=== PATIENT | female | born 2000 | race Caucasian/White ===

== ENCOUNTER → 2024-12-21 | Outpatient (CLI) | payer BC, SELFPAY | END | disposition home or self-care (01) | PROVIDERS: PCP Pediatrics; Referring Provider Obstetrics & Gynecology; Visit Provider Obstetrics & Gynecology | DX: Z12.4 Encounter for screening for malignant neoplasm of cervix (principal) | CPT/HCPCS: 87624; 88175; G0145 ==

== ENCOUNTER → 2024-12-21 | Outpatient (CLI) | payer BC, SELFPAY | END | disposition home or self-care (01) | LOC: BWCLAB 10:32 | PROVIDERS: PCP Pediatrics; Referring Provider Obstetrics & Gynecology; Visit Provider Obstetrics & Gynecology | DX: E28.2 Polycystic ovarian syndrome (principal); E03.9 Hypothyroidism, unspecified | CPT/HCPCS: 36415; 82627; 82670; 83036; 83516; 84402; 84403; 82626 ==

== ENCOUNTER → 2024-12-25 | Outpatient (CLI) | payer MEDICAID, SELFPAY ==
--- NOTE | 2024-12-25 13:04 | US_ITS ---
PROCEDURE: TRANSVAGINAL NON- 12/25/2024 REASON FOR EXAM: PCOS TECHNIQUE: TRANSVAGINAL NON- COMPARISON: None FINDINGS: LMP: November 25, 2024. Measurements: Uterus: 7.7 cm x 4.8 cm x 3.2 cm with a volume of 60.85 mL Endometrial Thickness: 6.3 mm. It is hyperechoic. Right Ovary: 4.4 cm x 3.0 cm x 2.5 cm with a volume of 17.23 mL. Left Ovary: 4.3 cm x 2.7 cm x 3.6 cm 21.02 with a volume of mL. Uterus: Normal size, myometrial echotexture, and contour.. Nabothian cyst is seen in the cervix. Endometrium: Unremarkable. Right ovary: Normal size and echotexture. Left ovary: Normal size and echotexture. Other: No large pelvic mass identified. US/Transvaginal Non- IMPRESSION: NORMAL TRANSABDOMINAL PELVIC ULTRASOUND. Reading Location: [facility]
== END | disposition home or self-care (01) ==
PROVIDERS: PCP Internal Medicine; Referring Provider Obstetrics & Gynecology; Visit Provider Obstetrics & Gynecology
DX: E28.2 Polycystic ovarian syndrome (principal)
CPT/HCPCS: 76830

== ENCOUNTER → 2025-01-01 | Outpatient (CLI) | payer MEDICAID, SELFPAY ==
--- NOTE | 2025-01-01 09:30 | CER_PTH ---
PATIENT: GIORGI REDD [facility] U#:[id number] AGE/SX: 24/F ROOM: RE01/01/[address]: Dr. Daja Ayala DO : 2000 BED: DIS: 01/01/2025 SPEC #: [id number] RECD: 01/01/25 12:17 STATUS: ARNOLDO ESCAMILLA #: [id number] JASS: 01/01/25 09:[address]: Daja Ayala DEPT: SURGICAL PATHOLOGY RECD BY: Frankie Hernandez Tissues: A - Uterine cervix, NOS Procedures: Surgery Specimen Level IV HEADER OPERATION: Colposcopy PRE-OP DIAGNOSIS: HPV+ TISSUE SUBMITTED: A- 12o'clock cervix MICROSCOPIC DIAGNOSIS A. Cervix, 12:00, colposcopy: Squamocolumnar mucosa with marked acute and chronic inflammation. Negative for histologic evidence of HPV / dysplasia. MICROSCOPIC DESCRIPTION Slides are reviewed. GROSS DESCRIPTION A. Received in formalin labeled with the patient's name and date of . Designated as 12 o'clock is a 0.6 x 0.4 x 0.1 cm pink-red tissue fragment and mucoid material. Entirely submitted in 1 cassette. UT 01/01/2025 CPT:[id number]
== END | disposition home or self-care (01) ==
LOC: LABSPEC 11:25
PROVIDERS: Visit Provider Obstetrics & Gynecology
DX: Z11.51 Encounter for screening for human papillomavirus (HPV) (principal)
CPT/HCPCS: 88305

== ENCOUNTER → 2025-01-05 | Outpatient (CLI) | payer MEDICAID, SELFPAY ==
--- NOTE | 2025-01-05 11:43 | RAD_ITS ---
PROCEDURE: SALPINGOGRAM 01/05/2025 REASON FOR EXAM: HSG ? TECHNIQUE: Procedure Code: RADSAL Modality: DX Procedure: SALPINGOGRAM Radiation dose: Fluoroscopy: 32 seconds. 15.86 mGy. 6 images were obtained. COMPARISON: None FINDINGS: A hysterosalpingogram was performed by the superintendent compressor stations. Contrast was injected. The uterus is unremarkable. No filling defect is seen. Both fallopian tubes are patent with free spill. RAD/Salpingogram IMPRESSION: Normal hysterosalpingogram. Reading Location: [place] [id number]
--- NOTE | 2025-01-05 13:07 | PCM.OP.PRO2 ---
Problems Associated Problem List Diagnoses (1) Infertility, female: Multi Select Codes Urinary/Genital Urinary/Genital CPT Codes: 97524 HSG/SIS Non-invasive Procedural Procedure Information Date of Procedure: 01/05/25 Pre-Procedure Diagnosis: infertility Post-Procedure Diagnosis: infertility Procedure Performed:: hysterosalpingogram medical specialist: No Special Medications: none Description of procedure: Preop diagnosis: Infertility Postop diagnosis:Infertility , bilateral tubal patency Procedure: Hysterosalpingogram Surgeon:Daja Ayala DO Implantable devices: None Complications: None Findings: Bilateral tubal patency and normal uterine cavity Operative details: Patient was taken to the x-ray room and was placed on the x-ray table and was in the dorsal lithotomy position. Speculum was placed in the vagina and the cervix prepped with Betadine and the HSG catheter was easily introduced into the uterus and speculum removed. Radiologist was brought in and while pushing radiopaque dye into the uterus via the HSG catheter the radiologist took multiple images and views and confirmed bilateral tubal patency seen. No gross uterine filling defects or abnormalities were seen. All instruments removed from the vagina and the uterus without complication. Patient tolerated the procedure well. Procedure findings: patent bilateral fallopian tubes
== END | disposition home or self-care (01) ==
LOC: RAD 11:42
PROVIDERS: PCP Internal Medicine; Referring Provider Obstetrics & Gynecology; Visit Provider Obstetrics & Gynecology
DX: N97.9 Female infertility, unspecified (principal)
CPT/HCPCS: 58340; 74740